=== PATIENT | female | born 1985 | race Caucasian/White ===

== ENCOUNTER 2017-01-08 05:24 | Inpatient (IN) ==
[2017-01-06 16:09] LABS: MANUAL DIFF NEEDED? NO; URINE SOURCE CLEAN CATCH
[2017-01-06 16:33] LABS: BASO% 0.1 % (0.0-0.8); EOS# 0.07 X1000 (0.0-0.7); EOS% 0.9 % (0.0-10.0); HEMATOCRIT 40.8 % (37.0-47.0); HEMOGLOBIN 13.6 g/dL (12.0-16.0); IMM GRAN# 0.03 X1000 (0.0-0.04); IMM GRAN% 0.4 % (0.0-0.5); LYMPH# 2.03 X1000 (1.2-3.4); LYMPH% 26.9 % (20.5-51.1); MCH 31.6 PG (27-31); MCHC 33.3 g/dL (33-37); MCV 94.9 FL (81-99); MONO# 0.64 X1000 (0.11-0.59); MONO% 8.5 % (1.7-9.3); MPV 9.4 FL (7.4-10.4); NEUT% 63.2 % (42.2-75.2); PLT 287 X1000 (130-400)
[2017-01-06 16:57] LABS: BILIRUBIN URINE NEGATIVE (NEGATIVE); BLOOD URINE NEGATIVE (NEGATIVE); CLARITY VERY CLOUDY (CLEAR); COLOR YELLOW; GLUCOSE URINE NEGATIVE (NEGATIVE); LEUKOCYTES URINE TRACE (NEGATIVE); NITRITE URINE NEGATIVE (NEGATIVE); PROTEIN URINE NEGATIVE (NEGATIVE); SP GRAVITY URINE 1.015; URINE MICROSCOPIC NEEDED? YES; UROBILINOGEN URINE NORMAL
[2017-01-06 16:58] LABS: URINE EPITHELIAL CELLS <10 /HPF (<10); URINE WBC <10 /HPF (<10)
--- NOTE | 2017-01-07 14:08 | HISTORY AND PHYSICAL ---
ADMITTING PHYSICIAN: Dr. Alin Sullivan. ADMITTING DIAGNOSES: 1. Dyspareunia. 2. Pelvic pain. SUMMARY: Ms. Mendez is a 32-year-old, 5, para 3-0-2-3. She is reporting pelvic pain and dyspareunia. In 2011, she underwent a laparoscopic supracervical hysterectomy. On her examination, her cervix is tender and reproduces the pain that she complains of. After discussing options with the patient, she wishes the cervix to be removed. She does not desire a vaginal procedure, but prefers an abdominal procedure. Risks of the surgery, including pain, bleeding, infection, bowel or bladder injury, anesthesia complications, or failure of this procedure to relieve all of her pain and suffering has been discussed. Her right ovary and tube have been removed, and incidentally she wants the left tube removed. She does want the left ovary not to be removed. PAST MEDICAL HISTORY: Patient has had 3 deliveries. In 2011, she underwent a laparoscopic supracervical hysterectomy. She also has a diagnosis of lupus and seizure disorder. She has had some hearing loss. She has been diagnosed with posttraumatic stress disorder. She also has asthma. ALLERGIES: Penicillins. CURRENT MEDICATIONS: Adderall, Klonopin, Ambien, Advair, ProAir, and Plaquenil. PHYSICAL EXAMINATION: VITAL SIGNS: Weight is 116 pounds. CARDIOVASCULAR: Regular rate and rhythm, without murmurs, rubs, gallops. PULMONARY: Clear. BREASTS: No masses. ABDOMEN: Nontender. On pelvic examination, there is a small residual cervix from her laparoscopic supracervical hysterectomy. I cannot feel any pelvic masses. EXTREMITIES: No clubbing, edema, or cyanosis. IMPRESSIONS: 1. Pelvic pains. 2. Dyspareunia. PLAN: We will do an exploratory laparotomy and remove the left tube, per her request. We will also remove the cervical stump. Risks of the surgery have been discussed. We especially discussed the possibility of bladder injury. Alternatives to the surgery, including vaginal laparoscopic surgeries, have been discussed. cc: Alin Sullivan MD
[2017-01-08] MEDS ORDERED: LR 1,000 ML IV SCH ×3 (05:56→09:16)
[2017-01-08] MEDS ORDERED: KEFZOL 1 GM/D5W 1 GM/50 ML IVPB IV ONE (06:00)
[2017-01-08] MEDS ORDERED: QUELICIN (DOSE) ONE (06:08)
[2017-01-08] MEDS ORDERED: ROBINUL ONE (06:09)
[2017-01-08] MEDS ORDERED: XYLOCAINE-MPF 2% ONE ×2 (06:09→06:23)
[2017-01-08] MEDS ORDERED: FENTANYL ONE (06:11)
[2017-01-08] MEDS ORDERED: DIPRIVAN 1% ONE (06:12)
[2017-01-08] MEDS ORDERED: ALBUTEROL NEB INH ONE (06:15)
[2017-01-08] MEDS ORDERED: STERILE WATER INJ. ONE (06:18)
[2017-01-08] MEDS ORDERED: EPHEDRINE ONE (06:24)
[2017-01-08] MEDS ORDERED: PEPCID IV ONE (06:24)
[2017-01-08] MEDS ORDERED: SODIUM CHLORIDE 0.9% INJ ONE (06:24)
[2017-01-08] MEDS ORDERED: NEOSTIGMINE ONE (06:25)
[2017-01-08] MEDS ORDERED: KEFZOL 1 GM/D5W 1 GM/50 ML IVPB ONE (06:46)
[2017-01-08] MEDS ORDERED: OFIRMEV 1000 MG/ISOTONIC SOLN 1,000 MG/100 ML BOTTLE ONE (07:50)
[2017-01-08] MEDS ORDERED: LR 1,000 ML ONE (08:25)
[2017-01-08] MEDS ORDERED: DILAUDID PCA VIAL ONE (08:51)
[2017-01-08] MEDS ORDERED: ZOFRAN IV PRN ×2 (08:52→09:15)
[2017-01-08] MEDS ORDERED: DILAUDID PCA VIAL IV PRN (08:52)
[2017-01-08] MEDS ORDERED: PHENERGAN IV PRN ×2 (08:52→09:15)
[2017-01-08] MEDS ORDERED: SODIUM CHLORIDE 0.9% INJ PRN ×2 (08:52→09:15)
[2017-01-08] MEDS ORDERED: NARCAN IV PRN (08:52)
[2017-01-08] MEDS ORDERED: NORCO-10 PO PRN (09:15)
[2017-01-08] MEDS ORDERED: AMBIEN PO PRN (09:15)
[2017-01-08] MEDS ORDERED: PHENERGAN IM PRN (09:15)
[2017-01-08] MEDS ORDERED: ZOFRAN ODT PO PRN (09:15)
[2017-01-08] MEDS ORDERED: DULCOLAX PR PRN (09:15)
[2017-01-08] MEDS ORDERED: VENTOLIN HFA INH PRN (09:15)
[2017-01-08] MEDS ORDERED: FLEET ENEMA PR PRN (09:15)
[2017-01-08] MEDS ORDERED: LEVSIN-SL SL PRN (09:15)
[2017-01-08] MEDS ORDERED: DEMEROL IM PRN (09:15)
[2017-01-08] MEDS: OFIRMEV 1000 MG/ISOTONIC SOLN 1,000 MG/100 ML BOTTLE IV SCH ×2 (13:46→21:02)
--- NOTE | 2017-01-08 14:48 | OPERATIVE NOTE ---
PROCEDURE DATE: 01/08/2017 SURGEON: Dr. Alin Sullivan. TURBINE ATTENDANT: Cari. ANESTHESIA: General endotracheal. OPERATION PERFORMED: 1. Exploratory laparotomy. 2. Lysis of pelvic adhesions. 3. Left salpingectomy. 4. Removal of cervical stump. PREOPERATIVE DIAGNOSIS: Pelvic pain. POSTOPERATIVE DIAGNOSIS: Pelvic adhesions. FINDINGS: On exploratory laparotomy, there were filmy adhesions involving the omentum and small bowel to the cuff. The left ovary was grossly normal. The right tube and ovary had been surgically removed. DESCRIPTION OF PROCEDURE: The patient was taken back to the operating room and after general endotracheal anesthesia, was placed in supine position. The vagina, perineum, and abdomen prepped and draped in usual fashion. A single-tooth tenaculum was placed on the cervix. A repeat Pfannenstiel incision was made. This incision was taken down to the fascia and the fascia was excised transversely. The underlying rectus muscles were bluntly and sharply dissected free. The rectus muscle in midline and peritoneum was entered. The Zen self-retaining retractor was placed and after adhesions were carefully dissected free, the bowel was packed out of the operative field. The tenaculum was pushed caudally to delineate the cervix. Using careful dissection, the peritoneum was dissected away from the cervix. The cervix was grasped with a Kennedi clamp. More careful dissection was used to dissect the bladder away from the cervical stump. We then used straight Gustabo clamps to clamp, excise, and ligate first the cardinal then uterosacral ligaments. Curved Patel clamps were then placed across the upper vaginal vault. The cervix was dissected free. Angle stitches were placed bilaterally. The cuff was closed. Several [id number] Vicryl sutures then used to achieve hemostasis. The peritoneum was then reapproximated over the cuff using a 2-0 chromic suture. The pelvic cavity was irrigated with copious amounts of sterile water and complete hemostasis was noted. Ureters could be seen to peristalse bilaterally. We then removed the left fallopian tube, clamping across the fallopian tube remnant with a Patel clamp and then excising it and then using Vicryl suture to achieve hemostasis. All packs and instruments were removed. Sponge, instrument, needle count reported as correct. The peritoneum and rectus muscles reapproximated using chromic suture. Final sponge, instrument, needle count reported as correct. The fascia closed using running Vicryl sutures x2. The adipose tissues were utilized by using interrupted 3-0 Vicryl sutures and the skin edges reapproximated using 3-0 Monocryl suture. Estimated blood loss of 100 mL. There were no complications. The patient went to the recovery room in stable condition. cc: Alin Sullivan MD
[2017-01-08 14:55] LABS: HEMATOCRIT 34.9 % (37.0-47.0); HEMOGLOBIN 11.7 g/dL (12.0-16.0)
[2017-01-08] MEDS: COLACE PO SCH ×2 (17:48→21:02)
[2017-01-08] MEDS: ADDERALL PO SCH (17:48)
[2017-01-08] MEDS: RISPERDAL PO SCH ×2 (17:49→21:03)
[2017-01-08] MEDS: PLAQUENIL PO SCH (17:50)
[2017-01-08] MEDS: PREDNISONE PO SCH (17:50)
[2017-01-08] MEDS: PERIDEX MT SCH ×2 (17:51→21:02)
[2017-01-08] MEDS: MYLICON PO SCH ×3 (17:51→21:02)
[2017-01-08] MEDS: KLONOPIN PO SCH ×3 (17:53→23:40)
[2017-01-08] MEDS: LAMICTAL PO SCH (17:55)
[2017-01-08] MEDS: FLEXERIL PO SCH ×3 (17:56→23:40)
[2017-01-08] MEDS: LR 1,000 ML IV SCH ×3 (17:59→23:37)
[2017-01-08] MEDS: ADVAIR 250/50 DISKUS INH SCH (19:47)
[2017-01-09] MEDS: OFIRMEV 1000 MG/ISOTONIC SOLN 1,000 MG/100 ML BOTTLE IV SCH ×4 (01:48→19:33)
[2017-01-09 06:12] LABS: HEMATOCRIT 35.2 % (37.0-47.0); HEMOGLOBIN 11.5 g/dL (12.0-16.0); MCH 31.5 PG (27-31); MCHC 32.7 g/dL (33-37); MCV 96.4 FL (81-99); MPV 9.7 FL (7.4-10.4); RBC 3.65 XMIL (4.2-5.4)
[2017-01-09] MEDS ORDERED: ADDERALL PO SCH (07:00)
[2017-01-09] MEDS: ADVAIR 250/50 DISKUS INH SCH ×2 (07:31→19:46)
[2017-01-09] MEDS: PLAQUENIL PO SCH (09:00)
[2017-01-09] MEDS: PERIDEX MT SCH ×2 (09:09→20:22)
[2017-01-09] MEDS: LAMICTAL PO SCH (09:09)
[2017-01-09] MEDS: RISPERDAL PO SCH ×2 (09:09→20:20)
[2017-01-09] MEDS: COLACE PO SCH ×2 (09:10→20:22)
[2017-01-09] MEDS: MYLICON PO SCH ×4 (09:10→20:22)
[2017-01-09] MEDS: PREDNISONE PO SCH (09:13)
[2017-01-09] MEDS: LR 1,000 ML IV SCH (09:27)
[2017-01-09] MEDS: FLEXERIL PO SCH ×3 (09:29→17:05)
[2017-01-09] MEDS: KLONOPIN PO SCH ×3 (09:33→17:05)
[2017-01-09] MEDS: ADDERALL PO SCH ×2 (10:22→14:09)
[2017-01-09] MEDS ORDERED: D/C PCA XX ONE (13:00)
[2017-01-09] MEDS: PERCOCET-10 PO PRN ×2 (18:19→23:07)
[2017-01-10] MEDS: OFIRMEV 1000 MG/ISOTONIC SOLN 1,000 MG/100 ML BOTTLE IV SCH (03:33)
[2017-01-10] MEDS: ADVAIR 250/50 DISKUS INH SCH (07:43)
[2017-01-10 08:20] VITALS: BP 125/82
[2017-01-10] MEDS: PERIDEX MT SCH (08:20)
[2017-01-10] MEDS: RISPERDAL PO SCH (08:21)
[2017-01-10] MEDS: KLONOPIN PO SCH (08:21)
[2017-01-10] MEDS: COLACE PO SCH (08:21)
[2017-01-10] MEDS: ADDERALL PO SCH (08:21)
[2017-01-10] MEDS: FLEXERIL PO SCH (08:21)
[2017-01-10] MEDS: PREDNISONE PO SCH (08:21)
[2017-01-10] MEDS: LAMICTAL PO SCH (08:21)
[2017-01-10] MEDS: MYLICON PO SCH (08:22)
[2017-01-10] MEDS: PLAQUENIL PO SCH (10:00)
--- NOTE | 2017-01-11 04:08 | DISCHARGE SUMMARY ---
ADMISSION DATE: 01/08/2017 DISCHARGE DATE: 01/10/2017 ADMITTING DIAGNOSES: 1. Dyspareunia. 2. Pelvic pain. PRINCIPAL DIAGNOSES: 1. Dyspareunia. 2. Pelvic pain. PRINCIPLE PROCEDURE: 1. Exploratory laparotomy. 2. Lysis of pelvic adhesions. 3. Left salpingectomy. 4. Removal of cervical stump. SUMMARY: Ms. Mendez is a 32-year-old, 5, para 3-0-2-3 with pelvic pain and dyspareunia. She previously had a laparoscopic supracervical hysterectomy. Examination revealed manipulation of her cervix reproduced her discomfort. After discussing options with the patient, she requested her cervical stump to be removed. She also requested the left fallopian tube remnant be removed. The right adnexal had been previously removed. She refused vaginal surgery with a concern that it would cause vaginal trauma. We therefore did an exploratory laparotomy. She did have some filmy adhesions that were taken down. The left tube was removed. The cervical stump was removed without difficulty. There were no intraoperative complications. Postoperatively, the patient has done well. She has remained afebrile and all vital signs were stable. She had an admission hemoglobin and hematocrit of 13.6 and 40 with discharge hemoglobin and hematocrit being 11.5 and 35.2. This morning, cardiac and pulmonary examinations are normal. Bowel and bladder function was normal. Incision was clean and dry. She is having scant vaginal bleeding. She will be discharged today and will be seen back in the office later this week. Routine discharge instructions, activity limitations, and precautions were discussed. Ms. Mendez will continue her current medications. I have given her a prescription for Percocet 10 mg, #30, and Zofran ODT, #20. cc: Alin Sullivan MD
== END 2017-01-10 09:55 | disposition home or self-care (01) ==
LOC: P.WC 05:24
PROVIDERS: ADMIT Obstetrics & Gynecology; ATTEND Obstetrics & Gynecology